=== PATIENT | male | born 1980 | race Hispanic/Latino ===

== ENCOUNTER 2018-02-14 07:26 | Day surgery (SDC) | payer BC ==
[2018-02-12 14:46] LABS: Absolute Lymphocytes (CBC) 2.5 K/uL (0.7-4.9); Absolute Monocytes 0.8 K/uL (0.1-1.3); Basophils % 1.2 % (0-1.3); Eosinophils % 1.4 % (0-4.4); Hematocrit 49.4 % (39.6-49.0); Lymphocytes % 21.3 % (15.3-44.8); MPV 9.7 fL (7.6-11.3); Monocytes % 7.1 % (3.3-12.3); RBC Red Blood Cell Count 5.34 M/uL (4.33-5.43)
[2018-02-12 14:47] LABS: Potassium 4.6 mmol/L (3.5-5.1)
--- NOTE | 2018-02-12 15:06 | RAD REPORT ---
EXAM DESCRIPTION: RAD - Chest Pa And Lat (2 Views) - 02/12/2018 2:52 pm CLINICAL HISTORY: Preop chest, pending left-sided chest mass removal and umbilical hernia repair COMPARISON: None. TECHNIQUE: PA and lateral views of the chest were obtained. FINDINGS: The lungs are clear of failure, infiltrate or mass. Lung markings are mildly prominent bel ieved be baseline. Heart size is normal and central vasculature is within normal limits. No pleura l effusion or pneumothorax seen. No acute bony finding noted. No aortic abnormality. IMPRESSION: No acute cardiopulmonary process.
--- NOTE | 2018-02-13 07:46 | EKG ---
Test Date: 2018-02-12 Test Time: 14:02:34 Agent Spa Desk: KRISTY MEASUREMENT RESULTS: Intervals: Rate: 91 WI: 116 QRSD: 88 QT: 352 QTc: 432 Egan: P: 28 WI: 116 QRS: 12 T: 42 INTERPRETIVE STATEMENTS: Normal sinus rhythm Normal ECG Compared to ECG 04/09/2000 05:31:00 Sinus arrhythmia no longer present Left-axis deviation no longer present Electronically Signed On 02-13-18 07:45:10 NURSE INFORMATICS EDUCATOR by Santi Coto
[2018-02-14] MEDS ORDERED: Ringers Lactate 1,000 ML IV ONE (08:00)
[2018-02-14] MEDS ORDERED: CEFAZOLIN 1GM (PREMIX IV) 1 GM/50 ML BAG ONE (08:01)
[2018-02-14] MEDS ORDERED: MIDAZOLAM HCL 2 MG/2 ML INJ ONE (08:33)
[2018-02-14] MEDS ORDERED: PROPOFOL 200 MG/20 ML VIAL IV ONE (08:33)
[2018-02-14] MEDS ORDERED: FENTANYL CITR 100 MCG/2 ML ONE ×3 (08:33→10:11)
[2018-02-14] MEDS ORDERED: LIDOCAINE 1% MPF 5 ML VIAL ONE (08:34)
[2018-02-14] MEDS ORDERED: ROCURONIUM 50 MG/5 ML VIAL IV ONE (08:35)
[2018-02-14] MEDS ORDERED: BUPIVACAINE 0.5% PF 10 ML VIAL ONE (08:57)
[2018-02-14] MEDS ORDERED: NEOSTIGMINE 1 MG/ML -5 ML SYRINGE ONE (09:45)
[2018-02-14] MEDS ORDERED: KETOROLAC 30 MG/ML INJ ONE (09:45)
[2018-02-14] MEDS ORDERED: ONDANSETRON 4 MG/2 ML VIAL ONE (09:45)
[2018-02-14] MEDS ORDERED: GLYCOPYRROLATE 0.2 MG/ML SYR ONE (09:45)
[2018-02-14] MEDS ORDERED: Mastisol Adhesive Liq ONE ×2 (09:49→10:26)
[2018-02-14] MEDS: HYDROMORPHONE HCL 1 MG/ML INJ ONE ×2 (10:53→10:58)
[2018-02-14] MEDS: MEPERIDINE HCL 50 MG/ML AMP ONE ×2 (11:05→11:10)
[2018-02-14] MEDS ORDERED: HYDROCODONE/APAP 7.5/325 MG TAB ONE (12:40)
--- NOTE | 2018-02-14 22:45 | OP ---
Date of Procedure: 02/14/2018 Surgeon: Ayaz Bond MD Preoperative Diagnoses: Left chest wall mass, ventral hernia and umbilical hernia. Postoperative Diagnoses: Left chest wall mass, ventral hernia and umbilical hernia. Procedure: 1.Excision of left chest wall mass, 4 x 4 cm with layered closures. 2.Laparoscopic repair of ventral and umbilical hernia with mesh. Estimated Blood Loss: Minimal. Specimen: Left chest wall mass most likely a lipoma and hernia sac and contents from both the ventra l and the umbilical area. Findings: As above. Anesthesia: General. Complications: None. Disposition: The patient tolerated the procedure in stable condition, taken to Recovery in good gene ral condition. Description Of Procedure: The patient was brought to the OR and placed in supine position. General anesthesia was begun. The patient was prepped and draped in the usual sterile fashion. Marcaine 0.5 % was infiltrated locally. A 15-blade was used to make a 4 cm incision over the left lower chest ant erior wall. Subcutaneous tissues were divided. Deep to subcutaneous tissue, a large lipoma 4 x 4 cm was excised, sent to Pathology as specimen. Wound irrigated. Bleeding controlled with cautery. A 2-0 chromic used to approximate the deep subcutaneous tissue and 3-0 chromic used to close skin. Alvino rile dressing was applied and then 1 cm left upper quadrant incision made. Subcutaneous tissue was d ivided. The fascia was identified and divided. A #1 Vicryl stay suture was placed. Peritoneal cavi ty entered with sharp and blunt dissection. A 12-mm trocar was placed into the peritoneal cavity and pneumoperitoneum established. This was done under direct vision and then laparoscopy revealed 2 her nias, 1 at the umbilicus, 1 above it with preperitoneal fat in it. A 5-mm trocar was placed in the l eft lower quadrant. Then, a 4 cm incision made at the umbilicus and extending upwards, subcutaneous tissue was divided. The 2 hernia sacs and contents identified, excised, sent to Pathology as specime n. Both hernia defects which were in total about 3 cm in diameter closed with interrupted #1 PDS sut ure in [id number] nature. Subsequently, pneumoperitoneum reestablished and then Marlex mesh bal [employer] system placed oval in shape. Covered entire area of the hernia with at least 3 cm borders in all directions and absorbable tack was used to tack the mesh to the peritoneal surface. No eviden ce of bleeding or bowel injury appreciated. Subsequently, all trocars were removed under direct visi on. Stay sutures were tied to each other to reapproximate the fascial defect. Subcutaneous wounds w ere irrigated, bleeding controlled with cautery. A 3-0 chromic used to approximate subcutaneous tiss ue and close the skin. Sterile dressing was applied. The patient was awakened and taken to Recovery in good general condition. Discharge Note: The patient will go to day surgery and home when stable. Disposition: To home. Condition: Stable. Discharge Instructions: Resume home medications and diet. Activity as tolerated. No heavy lifting. Remove outer dressing in 2 days. Shower. Keep wound clean, dry. Keep Steri-Strips on at all time s. Follow up in my office in 2 weeks, call for appointment. Tylenol No.3 one tablet p.o. q.4 p.r.n. pain. Incentive spirometry as ordered. Abdominal binder as ordered. /MODL Voice ID: [id number] Report ID: [id number]
== END 2018-02-14 13:35 | disposition home or self-care (01) ==
LOC: OR 07:26
PROVIDERS: ATTEND Surgery
PROC: 0WUF4JZ Supplement Abdominal Wall with Synthetic Substitute, Percutaneous Endoscopic Approach (ICD-10-PCS; principal; 2018-02-14 09:00)
PROC: 0JB60ZZ Excision of Chest Subcutaneous Tissue and Fascia, Open Approach (ICD-10-PCS; 2018-02-14 09:00)
DX: K43.9 Ventral hernia without obstruction or gangrene (principal); K42.9 Umbilical hernia without obstruction or gangrene; D17.1 Benign lipomatous neoplasm of skin and subcutaneous tissue of trunk
CPT/HCPCS: 36415; 71046; 80048; 85025; 88302; 88304; 88305; 93005; J0690; J1170; J2175; J2250; J2405; J2704; J2710; J3010